=== PATIENT | female | born 1945 | race Caucasian/White ===

== ENCOUNTER 2019-07-11 12:26 | Emergency (ER) | payer MEDICARE ==
[~2019-07-11] VITALS: Ht 162.6 cm; Wt 63.0 kg
[2019-07-11] MEDS ORDERED: LEVO-T25 MCG PO (12:57)
[2019-07-11] MEDS ORDERED: LIPITOR10 MG PO (12:58)
[2019-07-11] MEDS ORDERED: KLOR-CON M2020 MEQ PO (12:58)
[2019-07-11] MEDS ORDERED: CLONIDINE HCL0.2 M2 PO (12:58)
[2019-07-11] MEDS ORDERED: BUMEX2 MG PO (12:58)
[2019-07-11] MEDS ORDERED: TOPROL XL100 MG PO (13:01)
[2019-07-11] MEDS ORDERED: NEURONTIN 300M300 M2 PO (13:01)
[2019-07-11 13:57] LABS: INFLUENZA A ANTIGEN Negative (Negative); INFLUENZA B ANTIGEN Negative (Negative)
[2019-07-11] MEDS ORDERED: ZYRTEC10 M4 PO (14:18)
[2019-07-11] MEDS ORDERED: VENTOLIN HFA 1818 GM INH (14:18)
[2019-07-11] MEDS ORDERED: GLIPIZIDE ER2.5 MG PO (14:19)
[2019-07-11 14:40] VITALS: BP 113/65
[2019-07-11] MEDS ORDERED: GLIPIZIDE XL2.5 MG PO (15:33)
== END 2019-07-11 14:41 | disposition home or self-care (01) ==
LOC: M.ERS 12:26
PROVIDERS: Nurse Practitioner Family
DX: J30.9 Allergic rhinitis, unspecified (principal); I10 Essential (primary) hypertension; K21.9 Gastro-esophageal reflux disease without esophagitis; E03.9 Hypothyroidism, unspecified